=== PATIENT | female | born 1960 | race Caucasian/White ===

== ENCOUNTER 2016-09-02 05:33 | Inpatient (IN) ==
[2016-09-02] MEDS ORDERED: BUPIVACAINE MPF 0.25% /EPI 30 ML VIAL ONE (06:25)
[2016-09-02] MEDS ORDERED: ceFAZolin 1,000 MG VIAL ONE (06:26)
[2016-09-02] MEDS ORDERED: LIDOCAINE 1%/EPI INJ 20 ML VIAL ONE (06:26)
[2016-09-02] MEDS ORDERED: SODIUM CHLORIDE 0.9% 100 ML IV ONE (06:26)
--- NOTE | 2016-09-02 06:28 | EKG Report ---
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
[2016-09-02] MEDS ORDERED: LACTATED RINGERS 1,000 ML IV SCH (06:30)
[2016-09-02] MEDS ORDERED: TISSUE ADHESIVE 1 EACH APPLICATOR TOP ONE (06:36)
[2016-09-02] MEDS ORDERED: ONDANSETRON 4 MG/2 ML VIAL ONE ×2 (07:05→10:03)
[2016-09-02] MEDS ORDERED: DEXAMETHASONE 10 MG/1 ML VIAL ONE (07:05)
[2016-09-02] MEDS ORDERED: SUCCINYLCHOLINE 200 MG/10 ML VIAL ONE (07:05)
[2016-09-02] MEDS ORDERED: PROPOFOL 200 MG/20 ML VIAL IV ONE (07:05)
[2016-09-02] MEDS ORDERED: LIDOCAINE 2% 5 ML VIAL ONE (07:05)
[2016-09-02] MEDS ORDERED: PHENYLEPHRINE 1 MG/10 ML SYRINGE IV ONE (07:05)
[2016-09-02] MEDS ORDERED: ROCURONIUM 100 MG/10 ML VIAL IV ONE (07:05)
--- NOTE | 2016-09-02 07:27 | History and Physical Update ---
History and Physical Update - History and Physical H&P was reviewed, the patient examined and there: are no changes in the patients condition since last H&P was completed.
[2016-09-02] MEDS ORDERED: MORPHINE 2 MG/1 ML SYRINGE IV PRN (09:30)
[2016-09-02] MEDS ORDERED: ONDANSETRON 4 MG/2 ML VIAL IV PRN ×2 (09:30→10:12)
[2016-09-02] MEDS ORDERED: MIDAZOLAM 2 MG/2 ML VIAL ONE (09:47)
[2016-09-02] MEDS ORDERED: SEVOFLURANE 1 UNIT/15 MINUTE INH ONE (09:47)
[2016-09-02] MEDS ORDERED: fentaNYL 100 MCG/2 ML VIAL ONE ×2 (09:48→10:04)
[2016-09-02] MEDS ORDERED: ACETAMINOPHEN 1,000 MG/100 ML VIAL IV ONE (09:48)
[2016-09-02] MEDS ORDERED: LACTATED RINGERS 1,000 ML IV ONE (09:48)
[2016-09-02] MEDS ORDERED: fentaNYL 100 MCG/2 ML VIAL IV ONE ×2 (10:00→10:31)
--- NOTE | 2016-09-02 10:04 | Fluoroscopy Report ---
[place] cholangiogram in surgery Indication: Abdominal pain. Cholecystectomy. Comparison: None. Technique: Injection of the cystic duct using intravenous contrast was performed intraoperatively. Multiple fluoroscopic images were then captured and stored. Total fluoroscopy time was 30.8 seconds. Findings: Multiple triangular shaped intraluminal filling defects compatible with stone are demonstrated within the common bile duct. Impression: 1. Findings compatible with choledocholithiasis. 09/02/2016 10:01 AM PROCEDURE INTERPRETED AT [facility] DEPARTMENT OF RADIOLOGY Final Report Signed by: Dr. Mak Gonzalez
--- NOTE | 2016-09-02 10:47 | Operative Note ---
Date of procedure: 09/02/16 Pre-op diagnosis: cholelithiasis with chronic cholecystitis Post-op diagnosis: other (cholelithiasis with chronic cholecystitis and common bile duct stones) Procedure: Laparoscopic cholecystectomy with intraoperative cholangiogram Findings and technique: After informed consent was obtained patient brought the operating room and placed supine position. After successful induction with general anesthesia the patient's abdomen was prepped and draped in usual sterile fashion. Local anesthesia was infiltrated the umbilicus where a small transverse incision was made above her umbilicus and above her previous lower midline incisional scars. An open technique was used and the peritoneal cavity and a Michelle cannula was inserted. Pneumoperitoneum was established and the camera was inserted and the upper abdomen visualized. The patient was noted to have a severely inflamed thickened gallbladder which was packed with gallstones. She also had a large thick omentum which was adherent to the gallbladder and the undersurface of a large fatty liver. Ports were placed in the upper abdomen under camera vision. I had to place a fifth port to place a fan retractor to help hold the omentum and duodenum out of the way after it was teased off of the body of the gallbladder. I could not grasp the gallbladder because it was packed with stones and was not possible to be grasped. I was able to grasp it with a tenaculum and retracted upwards. I then incised the peritoneum over the neck of the gallbladder where there appeared to be an impacted stone. I teased the peritoneum off of the neck of the gallbladder trying to get below this neck of the gallbladder but there was intense inflammation medial to the neck of the gallbladder. I was able to identify the cystic artery branching over the medial neck of the gallbladder. I dissected the body and neck of the gallbladder free from the liver bed with no sharp dissection and only teasing it free achieving the critical view of safety. I then incised into the neck of the gallbladder were I then extracted the impacted stone from the gallbladder neck. I obtained a cholangiogram through the gallbladder neck which showed a moderately dilated common bile duct with 4 separate stones in the midportion of the common bile duct. There did not appear to be a stone at the ampulla and there was free flow of contrast through the ampulla into the duodenum. This had been discussed as a possibility with the patient and her preoperatively and I did mention that she may require an ERCP. I elected to pursue a postoperative ERCP rather than a common bile duct exploration as I did not feel that this could safely be done laparoscopically and that it would be difficult to be done even open with the inflammation in the region of her hepatoduodenal ligament. I controlled the neck of the gallbladder with a retired chromic Endoloop and also secured the branches of the cystic artery with hemoclips. The gallbladder was dissected free from the liver bed and placed in an Endo Catch bag and removed through the umbilical port site. This was very difficult and I had to enlarge the fascial defect at the umbilicus in this obese patient. The bed of dissection was carefully inspected and irrigated and inspected for 10-15 minutes and no bleeding or bile leakage noted. I then placed a 10 mm Bob-Saleem drain in the subhepatic space adjacent to the liver bed and this was brought out through the lowest 5 mm port site. The ports removed and no bleeding noted from the port sites. Gas was evacuated from the defect and the fascial defect is then closed with interrupted 0 Monocryl sutures and the skin closed with skin clips and the port sites closed with skin clips. She appeared to tolerate the procedure well this was a much more difficult procedure than usual because of her obesity her previous surgery and the inflammation and difficult anatomy at her gallbladder adjacent to an enlarged liver. All of these factors greatly added to the difficulty and complexity of the case and essentially tripled the usual expected operative time. She did tolerate the procedure well however and had no apparent complications. The operative findings were discussed with her and I also discussed ERCP with Dr. Valle. Anesthesia: GETA, local Surgeon / Physician: Orion Estevez III. Estimated blood loss: other (75 mL) Specimens: other (gallbladder) Condition: stable Disposition: PACU Discharge Plan - Discharge Medications No Action No Known Home Medications [No Known Home Medications] - Follow Up or Referral - Forms/Instructions
--- NOTE | 2016-09-02 11:52 | Anesthesia ---
Anesthesia Post OP - Post Ansesthetic Evaluation Patient seen in post op: Yes Resp: within normal limits CV: within normal limits Mental: within normal limits Temp: within normal limits [id number]-As-[id number]: within normal limits Nausea and Vomiting: within normal limits Pain: within normal limits
[2016-09-02 12:27] LABS: Hematocrit 42.9 VOL% (35.7-47.0); Hemoglobin 13.1 GM/DL (12.0-16.0)
--- NOTE | 2016-09-02 13:58 | Gastrointestinal Consult Note ---
Assessment and Plan (1) Choledocholithiasis Status: Acute Assessment and plan: 09/02-Status post cholecystectomy today with intraoperative cholangiogram with filling defects compatible with stone. No labwork noted at present. Plan and addendum to follow by Rodrigo. Current Visit: Yes History of Present Illness Chief complaint: Choledocholithiasis History of present illness: Ms. Mills is a 56 year old female who presented to the clinic to see Dr Estevez after 6 month history of RUQ pain, off and on nausea and vomiting. Pt states that she had over the last 6 months she has had RUQ pain that has been worsened with fatty foods and ingestion of food. She has had off and on bouts as well of nausea and vomiting. She was noted in clinic to have elevated LFTS as well however unable to review these results due to not in facility database. She has not had any fever or chills. On ultrasound she was found to have gallstones. She underwent laparascopic cholecystectomy on today with intraoperative cholangiogram which showed findings of choledocholithiasis. Dr Wallace has been consulted to discuss ERCP. Home Medications Medication Instructions Recorded Confirmed Type No Known Home Medications [No 10/14/14 09/02/16 History Known Home Medications] Allergies Allergy/AdvReac Type Severity Reaction Status Date / Time No Known Allergies Allergy Verified 10/15/14 13:23 Medical,Surgical,& Family Hx - Medical History Gastrointestinal: History of: GI Problems (ABD PAIN N AND V) - Surgical History HEENT Surgeries: Surgical HX of: Eye Surgery (TEAR DUCT SURGERY) Abdominal Surgeries: Surgical HX of: Cholecystectomy (09/02), Colonoscopy, EGD Reproductive Surgeries: Surgical HX of;: Breast Surgery (BREAST BX), Section (X2), Hysterectomy Orthopedic Surgeries: Surgical HX of;: Orthopedic Surgery (R SHOULDER) - Family History Family History: Reports;: Family Diabetes (MOM), Family Heart Disease (MOM), Family Hypertension (MOM) - Social History Smoking Status: Never smoker Frequency of Alcohol Use: None Type of Drug Use: None 12 point system: reviewed and no additional remarkable complaints except as stated - Constitutional Constitutional: Present: as per HPI - EENT Eyes: Present: as per HPI Ears: Present: as per HPI Nose, mouth and throat: Present: as per HPI - Cardiovascular Cardiovascular: Present: as per HPI - Respiratory Respiratory: Present: as per HPI - Gastrointestinal Gastrointestinal: Present: as per HPI, abdominal pain - Genitourinary Genitourinary: Present: as per HPI - Musculoskeletal Musculoskeletal: Present: as per HPI - Neurological Neurological: Present: as per HPI - Psychiatric Psychiatric: Present: as per HPI - Endocrine Endocrine: Present: as per HPI - Hematologic/Lymphatic Hematologic/Lymphatic: Present: as per HPI Exam - Constitutional Vitals: Period Temp Pulse Resp BP Sys/Benedict Pulse Ox Last 24 Hr 97 F-97.7 F 76-88 16-20 131-167/77-100 95-100 General appearance: no acute distress, over weight - Head Head exam: Present: normal inspection, normocephalic - Eye Eye exam: Present: other (lids and conjunctiva unremarkable). Absent: scleral icterus - ENT ENT exam: Present: normal exam, normal oropharynx - Neck Neck exam: Present: normal inspection - Respiratory Respiratory exam: Present: clear to auscultation bilaterally. Absent: rales, rhonchi, wheezes - Cardiovascular Cardiovascular exam: Present: regular rate and rhythm. Absent: diastolic murmur , JVD, systolic murmur - GI/Abdominal GI/Abdominal exam: Present: normal bowel sounds, soft. Absent: ascites, distended, mass, organomegaly, tenderness - Back Exam Back exam: Present: normal inspection - Neurological Exam Neurological exam: Present: alert, oriented X3 - Psychiatric Psychiatric exam: Present: normal affect, normal mood - Skin Skin exam: Present: normal color, warm, dry Results - Labs CBC & BMP: 09/02/16 11:53 Quality Measures - VTE Contraindication to Pharmacological VTE Prophylaxis: High Risk of Bleeding
[2016-09-02] MEDS: DEXTROSE 5% NACL 0.45% 1,000 ML IV SCH ×2 (15:31→20:09)
[2016-09-02] MEDS ORDERED: PHENOL 1.4% THROAT SPRAY 177 ML BOTTLE PO PRN (15:46)
[2016-09-02 18:33] LABS: Hematocrit 42.9 VOL% (35.7-47.0); Hemoglobin 13.8 GM/DL (12.0-16.0)
[2016-09-03] MEDS: DEXTROSE 5% NACL 0.45% 1,000 ML IV SCH ×2 (00:36→18:32)
[2016-09-03 02:50] LABS: Hematocrit 40.4 VOL% (35.7-47.0); Hemoglobin 12.6 GM/DL (12.0-16.0)
[2016-09-03 06:03] LABS: Basophils % 0.1 % (0.0-0.8); Hematocrit 39.4 VOL% (35.7-47.0); Hemoglobin 12.4 GM/DL (12.0-16.0); Immature Granulocytes % 0.5 %; Immature Granulocytes Absolute 0.08 #; Lymphocytes # 1.3 10*3/uL (1.4-4.0); Lymphocytes % 8.7 % (21.3-54.2); Mean Corpuscular HGB Conc 31.5 GM/DL (32-36); Mean Corpuscular Hemoglobin 27 PG (27-34); Mean Platelet Volume 13.1 FL (9.6-12.0); Monocytes # 1.3 10*3/uL (0.11-0.8); Monocytes % 8.6 % (1.7-12.7); Neutrophils # 12.1 10*3/uL (1.4-7.4); Neutrophils % 82.1 % (38.7-73.9); Platelet Count 223 T/CUMM (130-400); Red Blood Count 4.53 MC/CUMM (3.8-5.5); Red Cell Distribution Width 14.9 % (9.3-17.3); White Blood Count 14.7 T/CUMM (4-12)
[2016-09-03 06:39] LABS: Albumin 2.9 G/DL (3.4-5.0); Bilirubin,Total 0.8 MG/DL (0.2-1.0); Calcium 8.8 MG/DL (8.5-10.1); Osmolality,Calculated 287.1 MOS/KG (273-304); Potassium 4.7 MMOL/L (3.5-5.1); Total Protein 6.3 G/DL (6.4-8.3)
--- NOTE | 2016-09-03 14:07 | Event Note ---
Afebrile vital signs stable. Patient feels good. She is tolerating liquids. Her only complaint is of some gas pain. She denies flatus. No nausea or vomiting. She's been ambulating. Her abdomen is soft and appropriately tender and nondistended. We'll continue clear liquids. Recheck labs tomorrow. We'll try simethicone for the gas pain. Await return of bowel function.
--- NOTE | 2016-09-04 12:22 | Event Note ---
Patient says she feels normal and is ready to go home. She says she's bored. Afebrile vital signs stable. She is tolerating a diet. Her abdomen is soft and appropriately tender. She is for ERCP tomorrow.
--- NOTE | 2016-09-05 07:21 | Event Note ---
She feels well and has no abdominal pain. She is afebrile with stable vital signs. Her abdomen is benign. There is no bile in her SACHA drain. She is for ERCP today.
[2016-09-05 07:45] LABS: PT Patient Result 10.2 SECS
--- NOTE | 2016-09-05 11:42 | Physician Query Form ---
CLICK EDIT DOCUMENT TO SELECT QUERY ANSWER --> OK --> SIGN Natalie Motta RN Clinical Dye Weigher W) [phone] (f) [phone] [email or web address] PROVIDERS: Make your selection(s) from the choices in EACH section by typing an "x" and enter comments in the comment section. Please use your independent medical judgment in providing your response. This request does not imply that any particular answer is desired or expected. CLINICAL INDICATORS: (Providers should not edit this section) Height: 5'1" Weight: 242 Hospice Case Manager BMI: 45.9 If applicable, please provide an associated diagnosis related to the abnormal BMI: BMI of 40 or greater: ( ) Overweight ( ) Obesity (x ) Morbid//Severe Obesity ( ) Obesity with Alveolar Hypoventilation ( ) Weight Gain ( ) BMI is not significant ( ) Other, please specify: ( ) Clinically unable to determine COMMENTS: Use of terms such as suspected, likely, or probable (associated with a specific diagnosis that is being evaluated, monitored, or treated as if it exists) are acceptable and can be restated in the discharge summary if not ruled out. [facility]
[2016-09-05] MEDS ORDERED: fentaNYL 100 MCG/2 ML VIAL ONE (12:42)
[2016-09-05] MEDS ORDERED: MIDAZOLAM 2 MG/2 ML VIAL ONE (12:42)
--- NOTE | 2016-09-05 12:59 | Pathology Report from [facility] ---
ACCESSION # : [id number] PATIENT NAME : Mary Carmen Anderson ORDERING DR : KEITH RUTHERFORD III, MD CLINICAL HX: Cholelithiasis POST-OP DX: Same SPECIMEN INFO: Gallbladder GROSS DESCRIPTION: Received in formalin labeled "MARY CARMEN ANDERSON" is an intact gallbladder measuring 7.8 x 3.0 cm. The serosa is smooth and erythematous. The gallbladder wall has an average thickness of 0.3 cm. The mucosal surface is velvety and red zazueta. The lumen is filled with numerous yellow brown stones measuring 8.0 x 3.5 x 1.7 cm admixed with thick brown bile. Inventory Control Assistant sections are submitted in one cassette. DIAGNOSIS FOR MARY CARMEN ANDERSON: GALLBLADDER, CHOLECYSTECTOMY: Acute and chronic cholecystitis; cholelithiasis. SERVICE DATE: 09/02/2016 REPORT DATE: 09/05/2016 PATHOLOGIST: Nikolas Grimaldo
[2016-09-05] MEDS ORDERED: LABETALOL 100 MG/20 ML VIAL IV ONE (13:01)
[2016-09-05] MEDS ORDERED: LIDOCAINE 2% 5 ML VIAL ONE (13:01)
[2016-09-05] MEDS ORDERED: PROPOFOL 200 MG/20 ML VIAL IV ONE (13:01)
--- NOTE | 2016-09-05 13:01 | History and Physical Update ---
History and Physical Update - Physical Exam Mental Status: alert and oriented Heart: regular rate and rhythm Lung: clear to auscultation Abdomen: within normal limits Vitals: within normal limits History and Physical Changes: 56-year-old female had cholecystectomy for symptomatic gallstones and cholecystitis last week. She was noted to have common bile duct stones and returns for evaluation of this. She is medically stable today.
--- NOTE | 2016-09-05 13:21 | Operative Note ---
Pre-op diagnosis: Common bile duct stones Post-op diagnosis: same Procedure: Procedure: Endoscopic retrograde cholangiopancreatography with common bile duct sphincterotomy and common bile duct stone removal with balloon Brief clinical abstract: Patient is a 56-year-old female admitted with symptomatic gallstones and cholecystitis. She had laparoscopic cholecystectomy last week and was noted to have multiple common bile duct stones on intraoperative cholangiogram. Procedure findings: After informed consent was obtained, patient was placed in the prone position. Therapeutic video duodenoscope was inserted in the upper esophagus and blind fashion with minimal resistance encountered. Esophageal mucosa appeared normal. Stomach was examined including retroflex view of the cardia and fundus with no abnormality seen. The pyloric channel and duodenal bulb were normal. Second and third portion of the duodenum appeared normal including the appearance of the ampulla. Initially, pancreatogram was obtained using sphincterotome. Head, neck, body, and tail of the pancreas were opacified and had normal appearance. The endoscope was repositioned and cholangiogram obtained. Right and left intrahepatic systems were normal. Multiple opacities consistent with common bile duct stones were visible. The common bile duct was moderately dilated to over 12 mm maximally. No significant intrahepatic dilation was noted. 0.035 inch guidewire was advanced into the right intrahepatic system. Over 10 mm common bile duct sphincterotomy was performed over the wire along biliary orientation. The sphincterotome was removed and occlusion balloon was advanced into the proximal common hepatic duct. 3 8-10 mm stones were removed with the first pass of the balloon into the duodenum. These had yellow gold appearance. At least 5 further passes were made from the common hepatic duct with inflated balloon into the duodenum through the sphincterotomy opening and 3 further stones passed into the duodenum. We had 3 occlusion balloons burst pulling them into the duodenum. Scope position was somewhat difficult and I had to hold the elevator up close to the sphincterotomy opening for visualization with this felt to be the major factor causing repeated balloon perforation. Occlusion cholangiogram was obtained and a single residual stone approximately 10 mm diameter was noted. I could not secure the stone with a stone basket. Several more attempts with occlusion balloon were unsuccessful to remove the final stone. At this point, I felt it was advisable to discontinue the procedure. 10 Vietnamese by 5 cm common bile duct stent was placed to the sphincterotomy opening verified in good position fluoroscopically and endoscopically. Excellent drainage of contrast and bile was noted through the stent afterwards. The endoscope was removed. She appeared to tolerate the procedure well. Impression: #1 choledocholithiasis-with multiple common bile duct stones and with at least one retained stone noted on fluoroscopy. #2 biliary dilatation related #1 #3 normal pancreatogram Recommendations: Observe this afternoon and if no signs of pancreatitis could discharge home later today from my standpoint. Would plan to have her return in approximately 6 weeks for stent removal and repeat cholangiogram with possible stone removal if still present. Anesthesia: MAC Surgeon / Physician: David Wallace Estimated blood loss: none, minimal Specimens: none sent Condition: stable Disposition: post procedure unit Results - Labs CBC & BMP: 09/03/16 04:26 09/03/16 04:26 Discharge Plan - Discharge Medications No Action No Known Home Medications [No Known Home Medications] - Follow Up or Referral Follow Up: Orion Estevez III., MD [Physician] - - Forms/Instructions Instructions: Laparoscopic Cholecystectomy (DC)
--- NOTE | 2016-09-05 14:22 | Anesthesia ---
Anesthesia Post OP - Post Ansesthetic Evaluation Patient seen in post op: Yes Resp: within normal limits CV: within normal limits Mental: within normal limits Temp: within normal limits Ikgb-Jj-Wftuatiro: within normal limits Nausea and Vomiting: within normal limits Pain: within normal limits
--- NOTE | 2016-09-05 15:02 | Discharge Summary ---
Hospital Course - Hospital Course Hospital Course: 56[address] josesito GENAO w cholelithiasis w chronic cholecystitis. she was taken to the OR for laparoscopic cholecystectomy w IOC and retained CBD stones were found. dr wallace performed ERCP on 09/05/16 where multiple stones were found along w at least one retained stone. he recommended observation this afternoon for signs of pancreatitis and dc later if no problems. follow up w dr josesito GENAO in 1wk. follow up w dr wallace in 6wks for stent removal and repeat cholangiogram. - Time spent with patient Time with patient DS: Less than 30 minutes Specialty Discharge - Follow Up or Referrals Follow up with: Orion Estevez III., MD [Physician] - Discharge Plan - Discharge Data Disposition: Disch To Home/Self Care Condition at Discharge: Stable Discharge Diet: advance to your usual diet Activity: increase activity as tolerated, no lifting Hygiene: may shower Driving: other (no driving if taking pain pills) Contact your physician if you experience:: fever over 101, Nausea/Vomiting Wound / Dressing Care Instructions: ok to shower daily w mild soap and water, pat dry. ok to leave open to the air or cover prn w bandaids. - Discharge Medications New HYDROcodone/ACETAMIN 7.5-325 [Romeo 7.5-325] 1 tablet PO Q4H PRN #30 tablet PRN Reason: Pain Moderate (4-7) - Follow Up or Referral Follow Up: Orion Estevez III., MD [Physician] - 1 Week David Wallace MD [Physician] - (6wks for stent removal and repeat cholangiogram) - Forms/Instructions Instructions: Laparoscopic Cholecystectomy (DC) Exam - Constitutional Vitals: Period Temp Pulse Resp BP Sys/Benedict Pulse Ox Last 24 Hr 97.4 F-98.8 F 81-93 16-31 109-149/57-90 92-99 Discharge Results Procedures and tests throughout hospitalization: Pending Orders 09/05/16 15:52 [place] ERCP w sphincterotomy Routine Labs on day of discharge: Labs from last 24 hours 09/05/16 07:21 INR 1.0 PT Patient/Control Mix 10.2 DS: Provider Date of admission: 09/02/16 05:33 Primary care physician: . No PCP Attending physician on admission: Orion Estevez III., Consults: 09/02/16 09:30 Consult to Physician [CONS] Routine Comment: Consulting Provider: David Wallace 09/02/16 11:51 Consult to Pharmacy [CONS] Routine Reason for Pharmacy Consult: Adjust Meds Renal Funct Discharging clinician: SLICK Andrew Expected date of discharge: 09/05/16
[2016-09-05 16:28] VITALS: BP 110/72
--- NOTE | 2016-09-05 19:43 | Fluoroscopy Report ---
FL ERCP w sphincterotomy Clinical Information: Choledocholithiasis. Total fluoroscopy time: 10min 25 sec Operating physician: Dean Wallace Comparison: Prior intraoperative imaging 09/02/2016 Findings: Intraoperative imaging demonstrates normal appearance of the pancreatic duct. There is a single filling defect noted within the common duct which may represent the catheter balloon or retained common duct stone versus air bubble. The common bile duct is mildly dilated. At the conclusion of the procedure, a 10 Yemeni 5 cm stent was placed across the CBD. Impression: Intraoperative imaging as detailed above. PROCEDURE INTERPRETED AT [facility] DEPARTMENT OF RADIOLOGY Final Report Signed by: José Miguel Troy
[2016-09-06] MEDS ORDERED: GLUCAGON 1 MG VIAL ONE (14:29)
== END 2016-09-05 17:50 | disposition home or self-care (01) | DRG 418 ==
LOC: N.OR 05:33 → N.SDSINP 05:33 → EDSTATUS 07:30 → N.3E 09:30
PROVIDERS: ADMIT Surgery; ATTEND Surgery
PROC: LAPCHOL (2016-09-02 06:58)